=== PATIENT | female | born 1970 | race Caucasian/White ===

== ENCOUNTER 2016-12-03 20:43 | Emergency (ER) | payer OTHER ==
[~2016-12-03] VITALS: Ht 165.1 cm; Wt 99.8 kg
[~2016-12-03 20:43] MED LIST: AMOXIL250 MG/5 M PO; ANTIDEPRESSANT; ATIVAN1 MG PO; CLARITIN10 MG PO; DOXEPIN10 MG PO; GAVISCON ESRF360 ML PO; GAVISCON REGULA1 CT1 PO; HYDROCODONE BIT1 T11 PO; KEFLEX500 MG PO; LORTAB LIQUID5 ML PO; MEDROL DOSEPAK4 MG PO; Motrin,Rufen800 MG PO; NAPROSYN375 MG PO; NAPROSYN500 MG PO; PRILOSEC40 M1 PO; PRILOSEC40 MG PO; REGLAN5 MG PO; RESTORIL15 MG; SEPTRA DS 800 M1 TAB PO; ULTRAM50 MG PO; VIBRAMYCIN100 MG PO; VICODIN 5/500 505 MG PO; VICODIN 500 MG-1 TAB; ZANTAC 300300 MG PO; ZITHROMAX Z PA250 MG PO; ZYRTEC10 MG PO
[2016-12-03 21:00] VITALS: BP 142/83
[2016-12-03] MEDS ORDERED: FLONASE ALLERG9.9 ML NAS (21:01)
[2016-12-03] MEDS ORDERED: KEFLEX500 M1 PO (22:52)
[2016-12-03] MEDS ORDERED: BACTRIM DS 8001 TA1 PO (22:52)
[2016-12-03] MEDS ORDERED: PERCOCET 325 MG1 TA2 PO (22:52)
== END 2016-12-03 23:14 | disposition home or self-care (01) ==
LOC: ED 20:43
DX: L02.415 Cutaneous abscess of right lower limb (principal); F17.200 Nicotine dependence, unspecified, uncomplicated; Z98.51 Tubal ligation status; Z90.89 Acquired absence of other organs; Z98.890 Other specified postprocedural states; Z79.899 Other long term (current) drug therapy; Z88.5 Allergy status to narcotic agent; Z88.1 Allergy status to other antibiotic agents

== ENCOUNTER 2017-01-19 01:44 | Emergency (ER) | payer OTHER ==
[~2017-01-19] VITALS: Wt 99.8 kg
[~2017-01-19 01:44] MED LIST changes: +BACTRIM DS 8001 TA1 PO; +FLONASE ALLERG9.9 ML NAS; +KEFLEX500 M1 PO; +PERCOCET 325 MG1 TA2 PO
[2017-01-19 01:49] VITALS: BP 144/80
[2017-01-19] MEDS ORDERED: PREDNISONE20 M1 PO (03:08)
[2017-01-19] MEDS ORDERED: DIPHENHYDRAMINE50 M1 PO (03:08)
[2017-01-19] MEDS ORDERED: VIBRAMYCIN100 MG PO (03:11)
== END 2017-01-19 03:28 | disposition home or self-care (01) ==
LOC: ED 01:44
DX: L25.8 Unspecified contact dermatitis due to other agents (principal); T37.0X5A Adverse effect of sulfonamides, initial encounter; F17.200 Nicotine dependence, unspecified, uncomplicated; Z88.1 Allergy status to other antibiotic agents; Z88.6 Allergy status to analgesic agent; Z79.899 Other long term (current) drug therapy; Y92.9 Unspecified place or not applicable

== ENCOUNTER 2017-11-18 23:56 | Emergency (ER) | payer OTHER ==
[~2017-11-18] VITALS: Ht 165.1 cm; Wt 98.9 kg
[~2017-11-18 23:56] MED LIST changes: +DIPHENHYDRAMINE50 M1 PO; +PREDNISONE20 M1 PO
[2017-11-18 23:58] VITALS: BP 175/98
== END 2017-11-19 01:27 | disposition home or self-care (01) ==
LOC: ED 23:56
DX: S63.501A Unspecified sprain of right wrist, initial encounter (principal); Z88.5 Allergy status to narcotic agent; Z88.2 Allergy status to sulfonamides; W18.30XA Fall on same level, unspecified, initial encounter; Y93.01 Activity, walking, marching and hiking; Y92.090 Kitchen in other non-institutional residence as the place of occurrence of the external cause; Y99.8 Other external cause status

== ENCOUNTER → 2019-05-25 | Outpatient (CLI) | payer OTHER ==
[2019-05-25 15:12] LABS: BASO # 0.1 10*3/uL (0.0-0.1); BASO % 0.8 % (0.0-1.0); EOS # 0.5 10*3/uL (0.0-0.4); EOS % 4.1 % (1.0-4.0); HEMATOCRIT 47.9 % (37.0-47.0); LYMPH # 3.4 10*3/uL (1.3-4.4); MEAN CELL VOLUME 93.2 fl (81.0-99.0); MEAN CORPUSCULAR HGB 31.1 pg (27.0-31.0); MEAN CORPUSCULAR HGB CONC 33.4 g/dl (33.0-37.0); MEAN PLATELET VOLUME 9.9 fl (9.6-12.3); MONO # 0.9 10*3/uL (0.1-1.0); MONO % 7.7 % (3.0-9.0); NEUT # 6.2 10*3/uL (2.3-7.9); NEUT % 55.9 % (47.0-73.0); PLATELET COUNT AUTOMATED 358 10*3/uL (130-400); RED BLOOD COUNT 5.14 10*6/uL (4.10-5.10)
[2019-05-25 15:30] LABS: ALBUMIN 3.4 gm/dl (3.1-4.5); ALKALINE PHOSPHATASE 113 U/L (45-117); BUN 11 mg/dl (7-24); CHLORIDE 106 mmol/L (98-107); CHOLESTEROL 124 mg/dL (<200); CREATININE 0.99 mg/dL (0.55-1.02); HDL CHOLESTEROL 32 mg/dl (40-60); LDL CHOLESTEROL 47 mg/dL (9-159); POTASSIUM 4.8 mmol/L (3.5-5.1); SGOT/AST 11 IU/L (3-35); SGPT/ALT 36 U/L (12-78); SODIUM 138 mmol/L (136-145); TOTAL PROTEIN 7.5 gm/dL (6.4-8.2); TRIGLYCERIDES 223 mg/dl (<150); VLDL CHOLESTEROL 45 mg/dL (6-40)
== END | disposition home or self-care (01) ==
LOC: LAB 14:24
PROVIDERS: Family Medicine
DX: R53.83 Other fatigue (principal)

== ENCOUNTER 2020-02-18 23:17 | Emergency (ER) | payer OTHER ==
[2020-02-18 23:25] VITALS: BP 162/101
[2020-02-19] MEDS ORDERED: HYDROCODONE-AC1 EAC1 PO (00:06)
== END 2020-02-19 02:15 | disposition home or self-care (01) ==
LOC: ED 23:17
DX: S92.001A Unspecified fracture of right calcaneus, initial encounter for closed fracture (principal); M76.61 Achilles tendinitis, right leg; F41.9 Anxiety disorder, unspecified; J45.909 Unspecified asthma, uncomplicated; F32.9 Major depressive disorder, single episode, unspecified; K21.9 Gastro-esophageal reflux disease without esophagitis; Z88.5 Allergy status to narcotic agent; Z88.2 Allergy status to sulfonamides; Z79.899 Other long term (current) drug therapy; F17.200 Nicotine dependence, unspecified, uncomplicated; X58.XXXA Exposure to other specified factors, initial encounter; Y93.89 Activity, other specified; Y92.89 Other specified places as the place of occurrence of the external cause; Y99.8 Other external cause status

== ENCOUNTER 2020-04-17 17:54 | Emergency (ER) | payer OTHER ==
[~2020-04-17] VITALS: Ht 157.4 cm; Wt 99.8 kg
[~2020-04-17 17:54] MED LIST changes: +HYDROCODONE-AC1 EAC1 PO
[2020-04-17 18:32] LABS: BASO # 0.1 10*3/uL (0.0-0.1); BASO % 0.6 % (0.0-1.0); EOS # 0.3 10*3/uL (0.0-0.4); EOS % 3.2 % (1.0-4.0); LYMPH # 2.9 10*3/uL (1.3-4.4); MEAN CELL VOLUME 91.4 fl (81.0-99.0); MEAN CORPUSCULAR HGB 29.8 pg (27.0-31.0); MEAN CORPUSCULAR HGB CONC 32.6 g/dl (33.0-37.0); MEAN PLATELET VOLUME 9.6 fl (9.6-12.3); MONO # 0.8 10*3/uL (0.1-1.0); MONO % 8.5 % (3.0-9.0); NEUT % 55.5 % (47.0-73.0); PLATELET COUNT AUTOMATED 342 10*3/uL (130-400); RED BLOOD COUNT 5.14 10*6/uL (4.10-5.10); RED CELL DISTRI WIDTH 14.2 % (0-14.5)
[2020-04-17 18:43] LABS: ACT PARTIAL THROMBO TIME 29.9 SECONDS (20.0-32.1)
[2020-04-17 18:48] LABS: ALBUMIN 3.5 gm/dl (3.1-4.5); ALKALINE PHOSPHATASE 124 U/L (45-117); BUN 9 mg/dl (7-24); CHLORIDE 107 mmol/L (98-107); CREATININE 0.91 mg/dL (0.55-1.02); SGOT/AST 13 IU/L (3-35); SGPT/ALT 31 U/L (12-78); SODIUM 138 mmol/L (136-145); TOTAL PROTEIN 7.8 gm/dL (6.4-8.2)
[2020-04-17 18:57] LABS: TROPONIN I < 0.015 ng/ml (<0.045)
[2020-04-17 19:10] VITALS: BP 139/93
== END 2020-04-17 20:15 | disposition home or self-care (01) ==
LOC: ED 17:54
PROVIDERS: Emergency Medicine
DX: R20.2 Paresthesia of skin (principal); R20.0 Anesthesia of skin; Z88.6 Allergy status to analgesic agent; Z88.1 Allergy status to other antibiotic agents; Z88.2 Allergy status to sulfonamides; Z79.899 Other long term (current) drug therapy

== ENCOUNTER → 2020-07-01 | Outpatient (CLI) | payer OTHER ==
[2020-07-01 17:08] LABS: CHOLESTEROL 127 mg/dL (<200); HDL CHOLESTEROL 36 mg/dl (40-60); LDL CHOLESTEROL 52 mg/dL (9-159); TRIGLYCERIDES 195 mg/dl (<150); VLDL CHOLESTEROL 39 mg/dL (6-40)
== END | disposition home or self-care (01) ==
LOC: LAB 15:41
PROVIDERS: ATTEND Family Medicine
DX: G45.9 Transient cerebral ischemic attack, unspecified (principal)

== ENCOUNTER → 2020-07-11 | Outpatient (CLI) | payer OTHER | END | disposition home or self-care (01) | LOC: US 15:30 | PROVIDERS: ATTEND Family Medicine | DX: E04.1 Nontoxic single thyroid nodule (principal); G45.9 Transient cerebral ischemic attack, unspecified ==

== ENCOUNTER → 2020-09-16 | Outpatient (CLI) | payer OTHER ==
[2020-09-16 17:15] LABS: FREE T4 1.06 ng/dl (0.76-1.46)
[2020-09-16 17:19] LABS: THYROID STIM HORMONE (HS) 1.52 uIU/ml (0.358-4.75)
== END | disposition home or self-care (01) ==
LOC: US 15:00 → LAB 15:14
PROVIDERS: ATTEND Family Medicine
DX: E04.1 Nontoxic single thyroid nodule (principal)

== ENCOUNTER → 2020-10-09 | Outpatient (CLI) | payer OTHER | END | disposition home or self-care (01) | LOC: CARD 15:00 | PROVIDERS: ATTEND Internal Medicine Cardiovascular Disease | DX: I51.7 Cardiomegaly (principal); G45.9 Transient cerebral ischemic attack, unspecified ==

== ENCOUNTER 2021-01-06 20:37 | Emergency (ER) | payer OTHER ==
[~2021-01-06] VITALS: Ht 165.1 cm; Wt 122.5 kg
[2021-01-06 23:18] VITALS: BP 154/62
[2021-01-06] MEDS ORDERED: Ipratropium Brom3 ML INH (23:24)
[2021-01-06] MEDS ORDERED: NEBULIZER DEVI (23:24)
[2021-01-06] MEDS ORDERED: PREDNISONE20 M1 PO (23:24)
[2021-01-06] MEDS ORDERED: OMNICEF300 MG PO (23:24)
== END 2021-01-07 00:13 | disposition left against medical advice (07) ==
LOC: ED 20:37
DX: J45.901 Unspecified asthma with (acute) exacerbation (principal); J01.90 Acute sinusitis, unspecified; Z88.5 Allergy status to narcotic agent; Z79.899 Other long term (current) drug therapy; Z88.2 Allergy status to sulfonamides; Z88.8 Allergy status to other drugs, medicaments and biological substances; Z98.890 Other specified postprocedural states

== ENCOUNTER → 2022-04-29 | Outpatient (CLI) | payer OTHER ==
[~2022-04-29] MED LIST changes: +Ipratropium Brom3 ML INH; +NEBULIZER DEVI; +OMNICEF300 MG PO
[2022-04-29 16:17] LABS: BUN 10 mg/dl (7-24); CHLORIDE 109 mmol/L (98-107); CHOLESTEROL 109 mg/dL (<200); CREATININE 0.88 mg/dL (0.55-1.02); LDL CHOLESTEROL 46 mg/dL (9-159); POTASSIUM 3.8 mmol/L (3.5-5.1); SODIUM 138 mmol/L (136-145); TRIGLYCERIDES 159 mg/dl (<150)
== END | disposition home or self-care (01) ==
LOC: LAB 15:29
PROVIDERS: ATTEND Family Medicine
DX: R73.9 Hyperglycemia, unspecified (principal)

== ENCOUNTER → 2023-01-21 | Outpatient (CLI) | payer OTHER | END | disposition home or self-care (01) | LOC: US 11:00 → LAB 11:16 | PROVIDERS: ATTEND Family Medicine | DX: M79.662 Pain in left lower leg (principal); M71.22 Synovial cyst of popliteal space [Baker], left knee ==

== ENCOUNTER → 2024-05-22 | Outpatient (CLI) | payer OTHER ==
[2024-05-22 16:20] LABS: BASO # 0.1 10*3/uL (0.0-0.1); BASO % 0.9 % (0.0-1.0); EOS # 0.4 10*3/uL (0.0-0.4); EOS % 3.9 % (1.0-4.0); HEMATOCRIT 49.1 % (37.0-47.0); LYMPH # 2.7 10*3/uL (1.3-4.4); LYMPH % 28.3 % (27.0-41.0); MEAN CELL VOLUME 90.4 fl (81.0-99.0); MEAN CORPUSCULAR HGB 30.2 pg (27.0-31.0); MEAN CORPUSCULAR HGB CONC 33.4 g/dl (33.0-37.0); MEAN PLATELET VOLUME 9.5 fl (9.6-12.3); MONO # 0.6 10*3/uL (0.1-1.0); MONO % 6.6 % (3.0-9.0); NEUT # 5.7 10*3/uL (2.3-7.9); NEUT % 60.1 % (47.0-73.0); PLATELET COUNT AUTOMATED 333 10*3/uL (130-400); RED BLOOD COUNT 5.43 10*6/uL (4.10-5.10); RED CELL DISTRI WIDTH 14.4 % (0-14.5); WHITE BLOOD COUNT 9.5 10*3/uL (4.8-10.8)
[2024-05-22 16:58] LABS: ALKALINE PHOSPHATASE 115 U/L (46-116); BUN 9 mg/dl (9-23); CHLORIDE 105 mmol/L (98-107); CHOLESTEROL 150 mg/dL (<200); LDL CHOLESTEROL 73 mg/dL (9-159); POTASSIUM 3.7 mmol/L (3.4-5.1); SGPT/ALT 26 U/L (5-49); TOTAL PROTEIN 7.5 gm/dL (6.0-8.0); TRIGLYCERIDES 230 mg/dl (<150); VITAMIN D, 25-HYDROXY 12.7 ng/mL (30-100)
== END | disposition home or self-care (01) ==
LOC: LAB 15:55
PROVIDERS: ATTEND Internal Medicine
DX: E78.5 Hyperlipidemia, unspecified (principal); E56.9 Vitamin deficiency, unspecified; M54.9 Dorsalgia, unspecified

== ENCOUNTER → 2024-10-11 | Outpatient (CLI) | payer OTHER | END | disposition home or self-care (01) | LOC: CT 16:00 | PROVIDERS: ATTEND Internal Medicine | DX: Z12.2 Encounter for screening for malignant neoplasm of respiratory organs (principal); F17.210 Nicotine dependence, cigarettes, uncomplicated; I25.10 Atherosclerotic heart disease of native coronary artery without angina pectoris; R91.1 Solitary pulmonary nodule; J43.2 Centrilobular emphysema ==